=== PATIENT | male | born 1995 | race Caucasian/White ===

== ENCOUNTER 2024-10-12 19:20 | Emergency (ER) | payer OTHER ==
[2024-10-12] MEDS: Ondansetron 4 MG/2 ML SDV IVPUSH ONE (19:53)
[2024-10-12] MEDS: Diphtheria,Pertussis(Acell),Tetanus Vaccine 0.5 ML Syringe IM ONE (19:55)
[2024-10-12] MEDS: Bacitracin Oint 1 GM U/D Packet TOP ONE (19:58)
== END 2024-10-12 21:06 | disposition home or self-care (01) ==
LOC: MW.ED 19:20
DX: S52.611A Displaced fracture of right ulna styloid process, initial encounter for closed fracture (principal); S52.571A Other intraarticular fracture of lower end of right radius, initial encounter for closed fracture; T24.031A Burn of unspecified degree of right lower leg, initial encounter; S80.212A Abrasion, left knee, initial encounter; S00.81XA Abrasion of other part of head, initial encounter; E86.0 Dehydration; Z79.899 Other long term (current) drug therapy; Z75.3 Unavailability and inaccessibility of health-care facilities; V49.49XA Driver injured in collision with other motor vehicles in traffic accident, initial encounter; Z23 Encounter for immunization
CPT/HCPCS: 73110; 90471; 90715; 96361; 96374; 96375; 99284; J2270; J2405; J7030; 99283

== ENCOUNTER 2024-10-18 00:03 | Emergency (ER) | payer SELFPAY ==
[2024-10-18 00:42] LABS: BASOPHILS ABSOLUTE AUTO 0.02 K/uL (0.00-0.20); BASOPHILS PERCENT AUTO 0.3 % (0.0-1.0); EOSINOPHILS ABSOLUTE AUTO 0.27 K/uL (0.00-0.45); EOSINOPHILS PERCENT AUTO 3.9 % (0.0-6.0); IMMATURE GRAN ABSOLUTE AUTO 0.03 K/uL (0.00-0.05); IMMATURE GRAN PERCENT AUTO 0.4 % (0.0-0.4); LYMPHOCYTES ABSOLUTE AUTO 1.70 K/uL (1.00-4.80); LYMPHOCYTES PERCENT AUTO 24.7 % (24.0-44.0); MEAN PLATELET VOLUME 8.9 fL (9.4-12.4); MONOCYTES ABSOLUTE AUTO 0.47 K/uL (0.00-0.80); MONOCYTES PERCENT AUTO 6.8 % (0.0-8.0); NEUTROPHILS ABSOLUTE AUTO 4.40 K/uL (1.80-7.70); NEUTROPHILS PERCENT AUTO 63.9 % (41.0-71.0); NRBC ABSOLUTE 0.00 K/uL (0.00-0.02); NRBC PERCENT 0.0 /100WBC (0.0-0.2); PLATELET COUNT,PLT 303 K/uL (150-400); RED BLOOD CELL COUNT 4.86 M/uL (4.52-5.90); WHITE BLOOD CELL COUNT,WBC 6.89 K/uL (3.9-11.3)
[2024-10-18] MEDS: Silver Sulfadiazine 1% Crm 50 GM Tube TOP ONE (01:01)
== END 2024-10-18 01:45 | disposition home or self-care (01) ==
LOC: MW.ED 00:03
DX: T25.312A Burn of third degree of left ankle, initial encounter (principal); W20.8XXA Other cause of strike by thrown, projected or falling object, initial encounter
CPT/HCPCS: 16020; 36415; 85025; 87040; 96374; 99283; A9270; J2270